=== PATIENT | female | born 1990 | race Two or more races ===

== ENCOUNTER 2022-02-12 17:08 | Emergency (ER) | payer OTHER ==
[~2022-02-12] VITALS: Ht 170.2 cm; Wt 100.4 kg
[2022-02-12 19:39] VITALS: BP 113/81
[2022-02-12] MEDS ORDERED: IBUP800T26 PO (22:11)
[2022-02-12] MEDS ORDERED: CYCL-837 PO (22:11)
== END 2022-02-12 22:19 | disposition home or self-care (01) ==
LOC: ER 17:12
DX: S63.502A Unspecified sprain of left wrist, initial encounter (principal); V49.9XXA Car occupant (driver) (passenger) injured in unspecified traffic accident, initial encounter; Y93.89 Activity, other specified; Y92.89 Other specified places as the place of occurrence of the external cause; Y99.8 Other external cause status
CPT/HCPCS: 29125; 73110